=== PATIENT | female | born 1960 | race African-American/Black ===

== ENCOUNTER 2021-01-23 19:42 | Emergency (ER) | payer BC ==
[~2021-01-23] VITALS: Ht 165.1 cm; Wt 88.5 kg
[2021-01-23] MEDS ORDERED: HYDROCHLOROTH12.5 M1 PO (20:34)
[2021-01-23] MEDS ORDERED: VENLAFAXINE HCL75 M2 PO (20:34)
[2021-01-23] MEDS ORDERED: IBUPROFEN 800800 M1 PO (21:04)
[2021-01-23 22:55] VITALS: BP 129/84
== END 2021-01-23 22:56 | disposition home or self-care (01) ==
LOC: ER 19:42
DX: S90.02XA Contusion of left ankle, initial encounter (principal); Z88.0 Allergy status to penicillin; Z79.899 Other long term (current) drug therapy; Z79.2 Long term (current) use of antibiotics; X50.1XXA Overexertion from prolonged static or awkward postures, initial encounter; Y93.56 Activity, jumping rope; Y99.8 Other external cause status

== ENCOUNTER → 2021-02-02 | Outpatient (CLI) | payer BC ==
[~2021-02-02] MED LIST: HYDROCHLOROTH12.5 M1 PO; IBUPROFEN 800800 M1 PO; NORCO5 PO; VENLAFAXINE HCL75 M2 PO; XARELTO10 M1 PO
== END ==
LOC: LAB 16:00
PROVIDERS: ATTEND Student in an Organized Health Care Education/Training Program
DX: Z20.822 Contact with and (suspected) exposure to COVID-19 (principal)

== ENCOUNTER 2021-02-03 06:22 | Day surgery (SDC) | payer BC ==
[~2021-02-03] VITALS: Ht 167.6 cm; Wt 88.5 kg
[~2021-02-03 06:22] MED LIST changes: -NORCO5 PO; -XARELTO10 M1 PO
[2021-02-03 07:00] VITALS: BP 117/58
[2021-02-03 07:43] LABS: HEMATOCRIT 37.1 % (37.0-47.0); HEMOGLOBIN 12.4 gm/dL (12.0-15.0); MCHC 33.5 g/dL (28.0-37.0); MCV 89.6 fL (80.0-100.0); RBC 4.14 mil/uL (4.20-5.00); RDW 13.5 % (10.5-14.5); WBC 5.9 thou/uL (4.0-11.0)
[2021-02-03 07:47] LABS: CALCIUM 9.2 mg/dL (8.5-10.1); CREATININE 0.8 mg/dL (0.6-1.0); POTASSIUM 3.9 mmol/L (3.5-5.1)
[2021-02-03] MEDS ORDERED: NORCO5 PO (09:42)
[2021-02-03] MEDS ORDERED: XARELTO10 M1 PO (09:44)
[2021-02-03 10:03] VITALS: BP 117/58
--- NOTE | 2021-02-03 13:55 | EKG ---
[place] [address] [facility] [employer] [address] ELECTROCARDIOGRAM REPORT Name: ANNE ANDERSON Room #: 150-2 [facility]..#: [id number] Admission: 02/03/21 Attend Phys: Grant Cruz DPM Discharge: Date of : 64 Report #: [id number] [facility] Test Date: 2021-02-03 Test Time: 06:44:38 Pat Name: ANNE ANDERSON Department: Room: 150 2 Gender: F Telemarketer: IZABELA : 1960 Requested By: Donna Zamora Order Number: [id number] MD: Reza Carroll Measurements Intervals [place] Rate: 69 P: 37 MI: 192 QRS: -13 QRSD: 102 T: 39 QT: 417 QTc: 447 Interpretive Statements Sinus rhythm Abnormal R-wave progression, early transition No previous ECG available for comparison Electronically Signed On 02-03-2021 13:54:58 CDT by Reza Carroll [email or web address] <ELECTRONICALLY SIGNED> By: Reza Carroll MD 02/03/21 [id number] Reza Carroll MD /EPI
== END 2021-02-03 12:05 | disposition home or self-care (01) ==
LOC: TBA 06:22 → OR 06:22 → TBA 06:23 → OR 09:50
PROVIDERS: Student in an Organized Health Care Education/Training Program; ATTEND Podiatrist Foot & Ankle Surgery
DX: S86.012A Strain of left Achilles tendon, initial encounter (principal); I10 Essential (primary) hypertension; F41.9 Anxiety disorder, unspecified; Z98.890 Other specified postprocedural states; Z79.899 Other long term (current) drug therapy; Z87.891 Personal history of nicotine dependence; Z88.0 Allergy status to penicillin; X58.XXXA Exposure to other specified factors, initial encounter; Y93.89 Activity, other specified; Y92.89 Other specified places as the place of occurrence of the external cause; Y99.8 Other external cause status
CPT/HCPCS: 50010; 50101; 51536; 52124; 56526; 57091; 57180; 58488; 58957; 58958; 62110; 62900; 64039; 64043; 70005